=== PATIENT | female | born 1995 | race Hispanic/Latino ===

== ENCOUNTER 2024-09-03 16:26 | Inpatient (IN) | payer MEDICARE ==
[~2024-09-03] VITALS: Ht 307.3 cm; Wt 62.7 kg
[2024-09-03] VITALS (8 sets, daily range): BP systolic 114–125; BP diastolic 83–92; PULSE 100–127; RESP 14–26; TEMP 97.6; O2SAT 100
[~2024-09-03 16:26] MED LIST: ETOMIDATE 2 MG/ML 10 ML INJ IV ONE; MIDAZOLAM HCL 2 MG/2 ML VIAL ONE; SUCCINYLCHOLINE CHLORIDE 20 MG/ML 10ML VIAL ONE; VECURONIUM BROMIDE FOR INJ 20 MG VIAL ONE; WATER STERILE 10 ML VIAL ONE
[2024-09-03] MEDS: DIPHENHYDRAMINE HCL INJ 50 MG/ML VIAL IV ONE (16:54)
[2024-09-03] MEDS: METHYLPREDNISOLONE SOD SUCC 125 MG/2ML VIAL IV ONE (16:54)
[2024-09-03] MEDS: ALBUTEROL/IPRATROPIUM 3 ML NEB NEB ONE (16:55)
[2024-09-03] MEDS ORDERED: DEXMEDETOMIDINE 400MCG/NS100ML 100 ML IV PRN (18:30)
[2024-09-03] MEDS ORDERED: EPINEPHRINE HCL 1:1000 1ML 1 MG/ML AMP ONE (18:38)
[2024-09-03] MEDS ORDERED: PROPOFOL IV EMULSION 10MG/ML 100 ML IV PRN (19:15)
[2024-09-03 19:16] LABS: ABG PCO2 35 mmHg (35-45); ABG PH 7.42 (7.35-7.45); ABG PO2 404 mmHg (80-105)
[2024-09-03 19:17] LABS: ABG HCO3 23 mmol/L (22-26); ABG TCO2 24
[2024-09-03] MEDS: MIDAZOLAM HCL 2 MG/2 ML VIAL ONE (20:15)
[2024-09-03] MEDS: MIDAZOLAM HCL 2 MG/2 ML VIAL IV STA ×2 (20:15)
[2024-09-03] MEDS: PROPOFOL IV EMULSION 10MG/ML 100 ML ONE ×2 (20:18)
[2024-09-03] MEDS: FENTANYL 2000MCG/NS 250 250 ML IV PRN (20:22)
[2024-09-03] MEDS: KETAMINE HCL INJ 50 MG/ML 10 ML VIAL ONE (20:28)
[2024-09-03] MEDS: FAMOTIDINE 20 MG/2 ML VIAL IV STA (20:28)
[2024-09-03] MEDS: EPINEPHRINE 0.3 MG/0.3 ML PEN.INJCTR SC STA (20:29)
[2024-09-03] MEDS: EPINEPHRINE HCL SYRINGE ONE (20:29)
[2024-09-03 21:32] LABS: ABG HCO3 24 mmol/L (22-26); ABG PCO2 38 mmHg (35-45); ABG PO2 272 mmHg (80-105); ABG TCO2 25
[2024-09-03] MEDS: PROPOFOL IV EMULSION 10MG/ML 100 ML IV PRN (22:16)
[2024-09-03] MEDS: FAMOTIDINE 20 MG/2 ML VIAL IV SCH (23:11)
[2024-09-03] MEDS ORDERED: SERTRALINE HCL50 MG PO (23:33)
[2024-09-03] MEDS ORDERED: VIMPAT200 MG PO (23:33)
[2024-09-04] VITALS (12 sets, daily range): BP systolic 84–98; BP diastolic 53–62; PULSE 65–108; RESP 14–26; TEMP 97–97.7; O2SAT 100
[2024-09-04] MEDS ORDERED: ONDANSETRON HCL INJ 2MG/ML 2ML 2 MG/ML VIAL IV PRN (01:45)
[2024-09-04] MEDS: MIDAZOLAM HCL 2 MG/2 ML VIAL IV PRN (04:40)
[2024-09-04 07:29] LABS: BASOPHILS % 0.5 % (0.0-1.0); HEMATOCRIT 24.8 % (34.2-44.1); LYMPHOCYTES # (AUTO) 0.7 (1.0-3.2); LYMPHOCYTES % 37.4 % (18.0-39.1); MEAN CORPUSCULAR HEMOGLOBIN 27.2 pg (28-32); MEAN CORPUSCULAR VOLUME 87.6 fL (81-99); MONOCYTES # (AUTO) 0.2 (0.2-0.8); MONOCYTES % 10.7 % (4.4-11.3); NEUTROPHILS % 51.4 % (38.7-80.0); PLATELET COUNT 211 x10e3/uL (140-360); RED BLOOD COUNT 2.83 x10e6/uL (3.6-5.1); RED CELL DISTRIBUTION WIDTH 18.2 % (11.7-14.4)
[2024-09-04 07:36] LABS: HEMOGLOBIN 7.7 g/dL (12.0-16.0); WHITE BLOOD COUNT 1.87 x10e3/uL (4.8-10.8)
[2024-09-04] MEDS: ALBUTEROL SULF 0.083% NEB SOLN 3 ML NEB ONE (07:41)
[2024-09-04 08:10] LABS: ANION GAP 18.9 mmol/L (8-16); CALCIUM 8.7 mg/dL (8.4-10.2); CREATININE, SERUM 0.61 mg/dL (0.57-1.11); POTASSIUM 3.9 mmol/L (3.5-5.1)
[2024-09-04 08:12] LABS: ANISOCYTOSIS SLIGHT; LYMPHOCYTES % (MANUAL) 50 % (19-48); MONOCYTES % (MANUAL) 4 % (3.4-9.0); NEUTROPHILS % (MANUAL) 46 % (40-74); OVALOCYTES FEW; PLATELET ESTIMATE ADEQUATE; PLATELET MORPHOLOGY COMMENT NORMAL
[2024-09-04 08:13] LABS: HYPOCHROMASIA SLIGHT
[2024-09-04 08:29] LABS: CHOL/HDL RATIO 5.8 (3.0-3.6); MAGNESIUM 1.9 MG/DL (1.3-2.1); PHOSPHORUS 3.8 MG/DL (2.3-4.7)
[2024-09-04] MEDS ORDERED: METHYLPREDNISOLONE SOD SUCC 125 MG/2ML VIAL IV ONE (08:30)
[2024-09-04 08:50] LABS: FREE T4 (FREE THYROXINE) 1.04 ng/dL (0.8-1.8); THYROID STIMULATING HORMONE 0.589 uIU/mL (0.350-4.940)
[2024-09-04] MEDS ORDERED: LORATADINE 10 MG TAB PO SCH (09:00)
[2024-09-04] MEDS ORDERED: MUPIROCIN 2% OINT 22 GM TUBE TOP SCH (09:00)
[2024-09-11 07:33] LABS: ABG HCO3 24 mmol/L (22-26); ABG PCO2 38 mmHg (35-45); ABG PO2 272 mmHg (80-105); ABG TCO2 25
[2024-09-19 05:12] LABS: ABG HCO3 23 mmol/L (22-26); ABG PCO2 35 mmHg (35-45); ABG PH 7.42 (7.35-7.45); ABG PO2 404 mmHg (80-105); ABG TCO2 24
== END 2024-09-04 08:00 | disposition left against medical advice (07) | DRG 208 ==
LOC: FSED 16:42 → ERHOLD 17:00 → ICU 17:50
PROVIDERS: ADMIT Internal Medicine; ATTEND Internal Medicine
PROC: 0BH17EZ Insertion of Endotracheal Airway into Trachea, Via Natural or Artificial Opening (ICD-10-PCS; principal; 2024-09-03)
PROC: 5A1935Z Respiratory Ventilation, Less than 24 Consecutive Hours (ICD-10-PCS; 2024-09-03)
PROC: 4A033R1 Measurement of Arterial Saturation, Peripheral, Percutaneous Approach (ICD-10-PCS; 2024-09-03)
PROC: 4A033R1 Measurement of Arterial Saturation, Peripheral, Percutaneous Approach (ICD-10-PCS; 2024-09-03)
PROC: 4A033R1 Measurement of Arterial Saturation, Peripheral, Percutaneous Approach (ICD-10-PCS; 2024-09-03)
PROC: 4A033R1 Measurement of Arterial Saturation, Peripheral, Percutaneous Approach (ICD-10-PCS; 2024-09-03)
DX: J96.00 Acute respiratory failure, unspecified whether with hypoxia or hypercapnia (principal); Q79.60 Ehlers-Danlos syndrome, unspecified; T78.2XXA Anaphylactic shock, unspecified, initial encounter; Z53.29 Procedure and treatment not carried out because of patient's decision for other reasons; D89.40 Mast cell activation, unspecified; K31.84 Gastroparesis; D64.9 Anemia, unspecified; R00.0 Tachycardia, unspecified; S40.812A Abrasion of left upper arm, initial encounter; X58.XXXA Exposure to other specified factors, initial encounter; Z91.52 Personal history of nonsuicidal self-harm; Z79.899 Other long term (current) drug therapy; Z88.6 Allergy status to analgesic agent; Z88.5 Allergy status to narcotic agent; Z88.8 Allergy status to other drugs, medicaments and biological substances
CPT/HCPCS: 36415; 36600; 71045; 80048; 80061; 82805; 83036; 83735; 84100; 84439; 84443; 85025; 94002; 94003; 94640; 94660; 94799; 99281; J0171; J0330; J1308; J2250